=== PATIENT | female | born 1960 | race Caucasian/White ===

== ENCOUNTER 2016-12-19 15:20 | Emergency (ER) | payer BC, OTHER ==
--- NOTE | ~2016-12-19 | CR243 ---
[facility]. [facility] A Service of [facility] & [facility] RADIOLOGY TEXT RESULTS PATIENT: JEREMIAS SALOMON LOCATION: SED : 56 UNIT #: [id number] AGE: [address]: ISAAC BE SEX: F ORDER DR: [id number] [address] [address] [id number] E MR#: [id number] Acc #: [id number] NAME: JEREMIAS SALOMON : 1960 SEX: F STUDY DATE/TIME: 12/19/2016 16:05 UNIT: SED ROOM: STUDY DESCRIPTION: CR Thoracic Spine 3 Views Attending Physician: Isaac Be A.P.R.N. Ordering Physician: Isaac Be A.P.R.N. Primary Care Physician: Bola Torres M.D. MEDICAL IMAGING REPORT This report is preliminary unless electronic signature is present. EXAM Thoracic spine series, dated 12/19/16. COMPARISON Thoracic spine series dated 08/07/14. HISTORY Back pain, neck pain, right hip pain today following fall. FINDINGS Three views of the thoracic spine were obtained. There is mild diffuse bony osteopenia. Anterior endplate osteophytes are at multiple levels particularly in the mid thoracic spine. Minimal anterior wedge compression chronic deformity of 3 or 4 of the mid thoracic vertebrae probably from T7-T10 are suspected with less than 10% loss of height. No obvious acute displaced fracture or subluxation is seen. Pre and paravertebral soft tissues do not demonstrate any significant abnormality. C7-T1 and T12-L1 levels are intact. Dictated by... Yolanda Ames M.D. THIS IS AN ELECTRONICALLY VERIFIED REPORT Yolanda Ames M.D. at 12/21/2016 5:09 PM CPR/jt TD: 12/19/2016 23:12 JOB #: [id number] MEDICAL IMAGING REPORT Page 1 of 1
--- NOTE | ~2016-12-19 | CR151 ---
[facility] A Service of [facility] & [facility] / [facility] RADIOLOGY TEXT RESULTS PATIENT: JEREMIAS SALOMON LOCATION: SED : 56 UNIT #: [id number] AGE: [address]: ISAAC BE SEX: F ORDER DR: [id number] [address] [address] [id number] E MR#: [id number] Acc #: [id number] NAME: JEREMIAS SALOMON : 1960 SEX: F STUDY DATE/TIME: 12/19/2016 16:05 UNIT: SED ROOM: STUDY DESCRIPTION: CR Hip Min 2 Views Rt Attending Physician: Isaac Be A.P.R.N. Ordering Physician: Ej Be Primary Care Physician: Bola Torres M.D. MEDICAL IMAGING REPORT This report is preliminary unless electronic signature is present. EXAM Right hip joint series dated 12/19/2016. COMPARISON CT abdomen and pelvis without contrast dated 09/24/2015. HISTORY Patient fell down the stairs face forward today. Patient has neck pain, back pain and right hip pain. FINDINGS 2 views of the right hip were obtained. Mild arthritic changes are noted in bilateral hip joints without any significant acute displaced fracture or dislocation of the right hip. Adjacent the visualized bony pelvis does not demonstrate any significant acute abnormality. Degenerative changes are in the lower lumbar spine. Dictated by... Yolanda Ames M.D. THIS IS AN ELECTRONICALLY VERIFIED REPORT Yolanda Ames M.D. at 12/21/2016 5:09 PM CPR/rnr TD: 12/19/2016 23:16 JOB #: [id number] MEDICAL IMAGING REPORT Page 1 of 1
--- NOTE | ~2016-12-19 | CR181 ---
[facility] A Service of [facility] RADIOLOGY TEXT RESULTS PATIENT: JEREMIAS SALOMON LOCATION: SED : 56 UNIT #: [id number] AGE: [address]: ISAAC BE SEX: F ORDER DR: [id number] [address] [address] [id number] E MR#: [id number] Acc #: [id number] NAME: JEREMIAS SALOMON : 1960 SEX: F STUDY DATE/TIME: 12/19/2016 16:05 UNIT: SED ROOM: STUDY DESCRIPTION: CR Lumbar Spine 2 or 3 Views Attending Physician: Isaac Be A.P.R.N. Ordering Physician: Isaac Be A.P.R.N. Primary Care Physician: Bola Torres M.D. MEDICAL IMAGING REPORT This report is preliminary unless electronic signature is present. EXAM Lumbar spine series, dated 12/19/16. COMPARISON Lumbar spine series, dated 08/07/14. HISTORY Patient fell down the stairs today. Back pain. FINDINGS Three views of the lumbar spine were obtained. No acute displaced fracture or subluxation is seen. There is loss of disc height with vacuum disc at the level of L5-S1. Associated endplate osteophytes and facet hypertrophic changes are noted at this level. Pedicles, spinous process and visualized transverse process are intact. IMPRESSION No acute displaced fracture or subluxation. Degenerative changes are noted particularly at L5-S1. Dictated by... Yolanda Ames M.D. THIS IS AN ELECTRONICALLY VERIFIED REPORT Yolanda Ames M.D. at 12/21/2016 5:09 PM CPR/jt TD: 12/19/2016 23:15 JOB #: [id number] MEDICAL IMAGING REPORT [facility] A Service [facility] RADIOLOGY TEXT RESULTS PATIENT: JEREMIAS SALOMON LOCATION: SED : 56 UNIT #: [id number] AGE: [address]: ISAAC BE SEX: F ORDER DR: Page 1 of 1
--- NOTE | ~2016-12-19 | CR58 ---
[facility] A Service of [facility] & [facility] / [facility] RADIOLOGY TEXT RESULTS PATIENT: JEREMIAS SALOMON LOCATION: SED : 56 UNIT #: [id number] AGE: [address]: ISAAC BE SEX: F ORDER DR: [id number] [address] [address] [id number] E MR#: [id number] Acc #: [id number] NAME: JEREMIAS SALOMON : 1960 SEX: F STUDY DATE/TIME: 12/19/2016 16:05 UNIT: SED ROOM: STUDY DESCRIPTION: CR Cervical Spine 2 or 3 Views Attending Physician: Isaac Be A.P.R.N. Ordering Physician: Ej Be Primary Care Physician: Bola Torres M.D. MEDICAL IMAGING REPORT This report is preliminary unless electronic signature is present. EXAM Cervical spine series dated 12/19/2016. COMPARISON Thoracic spine series dated 12/16/2016. HISTORY Patient fell down the steps today with neck pain. FINDINGS Frontal, lateral, swimmers view, open-mouth C1-2 view and odontoid tip views were obtained. These 5 views demonstrate no acute displaced fracture or subluxation. There is expected bony alignment, architecture and mineralization. Vertebral body and intervertebral disc heights are intact. C7-T1 and C1-2 levels are within normal limits. Pre and paravertebral soft tissues are unremarkable. IMPRESSION No demonstrable significant abnormality. Dictated by... Yolanda Ames M.D. THIS IS AN ELECTRONICALLY VERIFIED REPORT Yolanda Ames M.D. at 12/21/2016 5:09 PM CPR/rnr TD: 12/19/2016 23:18 JOB #: [id number] MEDICAL IMAGING REPORT Page 1 of 1
[~2016-12-19 15:20] MED LIST: ALENDRONATE SOD10 MG; BACTRIM 400-801 TA1; DESYREL50 MG; FLEXERIL; KLOR-CON; KLOR-CON PO; LANSOPRAZOLE PO; LANSOPRAZOLE30 M3; MOBIC PO; PRAVACHOL; QUDEXY XR50 MG; THIOTHIXENE PO; THIOTHIXENE2 MG; TOPIRAMATE PO; TRAZODONE PO; VITAL-D RX TABL1 TAB
[2016-12-19] MEDS ORDERED: TOPIRAMATE PO (15:23)
[2016-12-19] MEDS ORDERED: TRAZODONE PO (15:23)
[2016-12-19] MEDS ORDERED: THIOTHIXENE PO (15:23)
[2016-12-19] MEDS ORDERED: ROPINIROLE PO (15:24)
[2016-12-19] MEDS ORDERED: PRAVASTATIN PO (15:24)
[2016-12-19] MEDS ORDERED: ALENDRONATE PO (15:24)
[2016-12-19] MEDS ORDERED: LANSOPRAZOLE PO (15:24)
[2016-12-19] MEDS ORDERED: MOBIC PO (15:24)
== END 2016-12-19 17:12 | disposition home or self-care (01) ==
LOC: SED 15:20
DX: S16.1XXA Strain of muscle, fascia and tendon at neck level, initial encounter (principal); S29.012A Strain of muscle and tendon of back wall of thorax, initial encounter; S39.012A Strain of muscle, fascia and tendon of lower back, initial encounter; F17.200 Nicotine dependence, unspecified, uncomplicated; Z90.49 Acquired absence of other specified parts of digestive tract; Z79.899 Other long term (current) drug therapy; W19.XXXA Unspecified fall, initial encounter; Y92.89 Other specified places as the place of occurrence of the external cause
CPT/HCPCS: 72040; 72072; 72100; 73502; 99283